=== PATIENT | female | born 1990 | race Caucasian/White ===

== ENCOUNTER 2017-09-07 19:39 | Emergency (ER) | payer MEDICAID | END 2017-09-07 21:04 | disposition left against medical advice (07) | LOC: ER 19:39 | DX: Z53.20 Procedure and treatment not carried out because of patient's decision for unspecified reasons (principal) ==

== ENCOUNTER 2017-09-24 10:34 | Emergency (ER) | payer MEDICAID ==
--- NOTE | 2017-09-24 10:42 | Emergency Department Record ---
History of Present Illness - General Chief complaint: ENT Stated complaint: EAR PAIN BROUGHT BY [facility] Time Seen by Provider: 09/24/17 10:41 Source: Patient Mode of Arrival: Ambulatory Limitations: No limitations - History of Present Illness Initial comments: The patient is here due to L ear pain for one day. The pain started last night when the L ear "popped". Since she has developed severe L ear pain with pain radiating to her L eye. There has been no visual changes, blurred vision, cough , runny nose, ST, fever, or Headache. The patient has had similar issues in the past with ear infections. MD complaint: Ear pain Onset/Timin -: Days(s) Location: L ear Severity: Severe Severity scale (1-10): 10 Quality: Aching Consistency: Constant Improves with: None Worsens with: None - Related Data Previous Rx's Medication Instructions Recorded Neomycin/Polymyxin B Sulf/Hc 3 drop AFFEAR QID #10 ml 09/24/17 [Cortisporin Otic] Allergies Allergy/AdvReac Type Severity Reaction Status Date / Time bee pollen Allergy ANAPHYLAXIS Verified 09/24/17 10:40 Penicillins Allergy SWELLING Verified 09/24/17 10:40 OF THE TONGUE Sulfa (Sulfonamide Allergy SWELLING Verified 09/24/17 10:40 Antibiotics) OF THE TONGUE Travel Screening - Travel/Exposure Within Last 30 Days Have you traveled within the last 30 days?: No Review of Systems Constitutional: Denies: Chills, Fever Eyes: Denies: Eye discharge ENT: Denies: Congestion Respiratory: Denies: Cough, Dyspnea Past Medical History - SOCIAL HISTORY Smoking Status: Current every day smoker Alcohol Use: None Drug Use: None - RESPIRATORY Hx Respiratory Disorders: Yes Hx Asthma: Yes - CARDIOVASCULAR Hx Cardio Disorders: Yes Comment:: murmur - NEURO Hx Neuro Disorders: Yes Hx Seizures: Yes ("long time ago") - GI Hx GI Disorders: Yes Comment:: gallbladder disease - Hx Genitourinary Disorders: No - ENDOCRINE Hx Endocrine Disorders: No - MUSCULOSKELETAL Hx Musculoskeletal Disorders: Yes Comment:: scoliosis - PSYCH Hx Psych Problems: Yes Hx Anxiety: Yes - HEMATOLOGY/ONCOLOGY Hx Hematology/Oncology Disorders: No Family Medical History Any Significant Family History?: Yes *Cancer Comment: breast ca -aunt Hx Dementia: Grandparents Hx Diabetes: Grandparents Hx Heart Disease: Grandparents Hx HTN: Grandparents Hx Resp Disorders: Father Physical Exam - General General Appearance: Alert, Cooperative, No acute distress - Head Head exam: Atraumatic, Normocephalic, Normal inspection - Eye Eye exam: Normal appearance, PERRL, EOMI. negative: Conjunctival injection - ENT ENT exam: Mucous membranes moist, Normal orophraynx. negative: Normal exam, Mucous membranes dry, TM's normal bilaterally (There is bilateral cerumen impactions.) Ear exam: Normal external inspection, External canal tenderness (There is significant pain with palpating the Tragus and pulling on the pinnae.) Throat exam: Normal inspection. negative: Tonsillar erythema, Tonsillar exudate - Neck Neck exam: Normal inspection, Full ROM. negative: Lymphadenopathy, Meningismus , Tenderness - Respiratory Respiratory exam: Normal lung sounds bilaterally. negative: Respiratory distress - Cardiovascular Cardiovascular Exam: Regular rate, Normal rhythm, Normal heart sounds Course Vital Signs 09/24/17 10:36 Temperature 98.4 F Pulse Rate 77 Respiratory 20 Rate Blood Pressure 121/89 Pulse Ox 98 - Reevaluation(s) Reevaluation #1: The patient is doing much better at this time. She is now not exhibiting any significant pain and is texting on her phone very actively. 09/24/17 10:54 Disposition Disposition: Discharge Clinical Impression: Otitis externa Qualifiers: Otitis externa type: unspecified type Chronicity: acute Laterality: left Qualified Code(s): H60.502 - Unspecified acute noninfective otitis externa, left ear Disposition: Home, Self-Care Condition: (2) Stable Instructions: Otitis Externa (ED) Additional Instructions: Please use Tylenol or Motrin for pain and use the ear drops as directed. Please see your PCP for recheck next week and to have the ears flushed out. Return to the ER for any worsening symptoms. Prescriptions: Neomycin/Polymyxin B Sulf/Hc [Cortisporin Otic] 3 drop AFFEAR QID #10 ml Forms: Patient Portal Access Time of Disposition: 11:13 Quality - Quality Measures Quality Measures: N/A - Blood Pressure Screening View Details: Yes Does Patient Have Any of the Following: No Blood Pressure Classification: Pre-Hypertensive BP Reading Systolic Measurement: 121 Diastolic Measurement: 89 Screening for High Blood Pressure: < Pre-Hypertensive BP, F/U Documented > [ [id number]] Pre-Hypertensive Follow-up Interventions: Referral to alternative/primary care provider.
[2017-09-24] MEDS ORDERED: KETOROLAC 30 MG/ML VIAL IM ONE (10:46)
== END 2017-09-24 11:23 | disposition home or self-care (01) ==
LOC: ER 10:34
DX: H60.502 Unspecified acute noninfective otitis externa, left ear (principal); F17.210 Nicotine dependence, cigarettes, uncomplicated
CPT/HCPCS: 99283 ×2; 96372; J1885